=== PATIENT | male | born 1980 | race Caucasian/White ===

== ENCOUNTER 2017-02-13 16:51 | Emergency (ER) | payer OTHER ==
--- NOTE | ~2017-02-13 | EKG ---
PATIENT: ТАТЬЯНА CROSS UNIT #: [id number] Ventricular Rate: 84 BPM Atrial Rate: 84 BPM P-R Interval: 168 ms QRS Duration: 88 ms Q-T Interval: 366 ms QTC Calculation(Bezet): 432 ms P [place]: 62 degrees Calculated R [place]: 42 degrees Calculated T [place]: 57 degrees Diagnosis Line: Normal sinus rhythm Diagnosis Line: Normal ECG Diagnosis Line: No previous ECGs available Diagnosis Line: Confirmed by SORIN COTA MD ([id number]) on Diagnosis Line: 02/14/2017 9:04:54 AM INTERPRETING MD: CIPRIANO WALSH
[~2017-02-13 16:51] MED LIST: NO MEDICATIONS; TYLENOL #3 PO; ZANAFLEX4 M1 PO
[2017-02-13 19:03] LABS: BASOPHIL# 0.1 X10e3 (0-0.3); BASOPHIL% 0.6 % (0-2.5); EOSINOPHIL# 0.1 X10e3 (0-0.7); EOSINOPHIL% 1.2 % (0.0-7.0); HEMATOCRIT 46.2 % (38.0-50.0); LYMPHOCYTE# 1.3 X10e3 (1.0-3.5); MEAN CORPUSCULAR HEMOGLOBIN 30.7 PG (28-34); MEAN CORPUSCULAR HGB CONC 34.5 g/dL (30-36); MEAN PLATELET VOLUME 8.3 FL (6.5-11.5); MONOCYTE# 0.9 X10e3 (0-1.0); MONOCYTE% 10.1 % (3.0-12.0); NEUTROPHIL# 6.9 X10e3 (1.5-7.1); NEUTROPHIL% 74.1 % (40-75); PLATELET COUNT 258 X10e3 (140-420); RED BLOOD COUNT 5.19 X10e (3.90-5.60); RED CELL DISTRIBUTION WIDTH 13.4 % (11.0-15.5); WHITE BLOOD COUNT 9.4 X10e3 (4.0-10.5)
[2017-02-13 19:04] LABS: DIFF IND NO
[2017-02-13 19:31] LABS: ALBUMIN SERUM 4.7 g/dL (3.5-5.0); BILIRUBIN, DIRECT 0.1 mg/dL (0.0-0.2); BILIRUBIN,INDIRECT 0.6 mg/dL (0.0-0.9); BILIRUBIN,TOTAL 0.7 mg/dL (0.2-2.0); BUN/CREATININE RATIO 15.45; CALCIUM SERUM 9.5 mg/dL (8.4-10.2); CREATININE SERUM 1.1 mg/dL (0.6-1.4); GLOM FILT RATE Estimated 84.7 mL/min (>60); POTASSIUM 3.4 mmol/L (3.5-5.1); PROTEIN TOTAL SERUM 7.5 g/dL (6.0-8.3)
== END 2017-02-13 21:33 | disposition home or self-care (01) ==
LOC: CED 16:51
PROVIDERS: Emergency Medicine
DX: E86.0 Dehydration (principal); R11.0 Nausea; Z79.899 Other long term (current) drug therapy
CPT/HCPCS: 36415; 80048; 80076; 82947; 85025; 93005; 96361; 96374; 99284; J2405

== ENCOUNTER 2017-03-10 11:43 | Emergency (ER) | payer OTHER ==
[~2017-03-10] VITALS: Ht 188 cm; Wt 111.1 kg
--- NOTE | ~2017-03-10 | CT71 ---
[facility] A Service of [facility] RADIOLOGY TEXT RESULTS PATIENT: ТАТЬЯНА CROSS LOCATION: [facility] : 76 UNIT #: [id number] AGE: [address]: Cinthia Mckeon MD SEX: M ORDER DR: [id number] [facility] [address] [place], [place] [address] [id number] MR#: [id number] #: [id number] NAME: ТАТЬЯНА CROSS : 1980 SEX: M STUDY DATE/TIME: 03/10/2017 15:36 UNIT: [place] ROOM: STUDY DESCRIPTION: CT Head Wo Contrast Attending Physician: Cinthia Mckeon M.D. Ordering Physician: Lloyd Lema M.D. Primary Care Physician: Primary Care Physician No MEDICAL IMAGING REPORT This report is preliminary unless electronic signature is present EXAM Head CT, no contrast, 03/10/2017 INDICATION Pressure in the head and dizziness for 2 weeks in a 36-year-old male. TECHNIQUE Noncontrast CT brain was performed and compared 03/28/2016. This CT exam was performed with one or more of the following radiation dose reduction techniques: automatic exposure control, adjustment of mA and/or kV according to patient size, and iterative reconstruction. FINDINGS Sulci and ventricles unremarkable. No midline shift. No evidence of acute intracranial hemorrhage. There is no mass, mass effect or edema to suggest acute infarct and no extraaxial fluid collections are present. The globes are intact. Bones are intact. Sinuses are clear. IMPRESSION Negative noncontrast CT of the brain. No clearly acute intracranial process. Dictated by... Drew Harman M.D. THIS IS AN ELECTRONICALLY VERIFIED REPORT Drew Harman M.D. at 03/11/2017 2:17 PM Jeet TD: 03/11/2017 00:25 [facility] A Service of [facility] RADIOLOGY TEXT RESULTS PATIENT: ТАТЬЯНА CROSS LOCATION: [facility] : 76 UNIT #: [id number] AGE: [address]: Cinthia Mckeon MD SEX: M ORDER DR: JOB #: [id number] MEDICAL IMAGING REPORT Page 1 of 1 COPY
--- NOTE | ~2017-03-10 | EKG ---
PATIENT: ТАТЬЯНА CROSS UNIT #: [id number] Ventricular Rate: 67 BPM Atrial Rate: 67 BPM P-R Interval: 174 ms QRS Duration: 90 ms Q-T Interval: 374 ms QTC Calculation(Bezet): 395 ms P [place]: 73 degrees Calculated R [place]: 44 degrees Calculated T [place]: 66 degrees Diagnosis Line: Normal sinus rhythm Diagnosis Line: Nonspecific ST and T wave abnormality Diagnosis Line: Abnormal ECG Diagnosis Line: When compared with ECG of 13-FEB-2017 18:55, Diagnosis Line: No significant change was found Diagnosis Line: Confirmed by ANAID HALEY MD ([id number]) on 03/11/2017 Diagnosis Line: 11:43:13 PM INTERPRETING MD: TERA WALSH
== END 2017-03-10 16:35 | disposition home or self-care (01) ==
LOC: CED 11:43
DX: R42 Dizziness and giddiness (principal); Z79.899 Other long term (current) drug therapy
CPT/HCPCS: 70450; 93005; 99284